=== PATIENT | female | born 1950 | race Caucasian/White ===

== ENCOUNTER 2020-12-09 10:45 | Inpatient (IN) | payer MEDICARE, BC ==
[2020-12-11 09:53] VITALS: BMI 36.6
[2020-12-12] MEDS ORDERED: EPINEPHrine 1 MG/ML AMP ONE (06:12)
[2020-12-12] MEDS ORDERED: Thrombin 5000 UNITS/5 ML VIAL ONE ×2 (06:12→13:10)
[2020-12-12] MEDS ORDERED: Bupivacaine PF 0.5% 30 ML VIAL ONE (06:12)
[2020-12-12] MEDS ORDERED: Fentanyl 100 MCG/2 ML VIAL ONE ×3 (06:47→16:22)
[2020-12-12] MEDS ORDERED: HYDROmorphone 2 MG/ML VIAL ONE (06:48)
[2020-12-12] MEDS ORDERED: Ketamine 50 MG/ML (10ML VIAL) ONE (06:48)
[2020-12-12] MEDS ORDERED: Glycopyrrolate 0.2 MG/ML 5 ML SYRINGE ONE (07:05)
[2020-12-12] MEDS ORDERED: Labetalol HCl 100 MG/20 ML VIAL ONE ×2 (07:05→15:19)
[2020-12-12] MEDS ORDERED: Dexamethasone 20 MG/5 ML VIAL ONE (07:05)
[2020-12-12] MEDS ORDERED: ePHEDrine 50 MG/ML VIAL ONE (07:05)
[2020-12-12] MEDS ORDERED: Ondansetron PF 4 MG/2 ML Vial ONE ×2 (07:05→10:26)
[2020-12-12] MEDS ORDERED: Vecuronium 10 MG VIAL ONE (07:05)
[2020-12-12] MEDS ORDERED: PROPOFOL 200 MG/20 ML VIAL ONE (07:05)
[2020-12-12] MEDS ORDERED: Rocuronium Bromide 10 MG/ML (10ML VIAL) ONE (07:05)
[2020-12-12] MEDS ORDERED: diphenhydrAMINE 50 MG/ML VIAL ONE (07:05)
[2020-12-12] MEDS ORDERED: Albumin 5% 500 ML ONE (10:15)
[2020-12-12] MEDS ORDERED: Midazolam HCl 2 mg/2 ml Vial ONE (10:23)
[2020-12-12] MEDS ORDERED: Mag-Al 1200 mg/1200 mg/30 ML UDCUP PO PRN (15:02)
[2020-12-12] MEDS ORDERED: Promethazine HCl 25 MG/ML VIAL IM PRN ×2 (15:02→15:23)
[2020-12-12] MEDS ORDERED: traMADol HCl 50 MG TAB PO PRN (15:02)
[2020-12-12] MEDS ORDERED: Scopolamine 1.5 mg/72 hour Patch TD PRN (15:02)
[2020-12-12] MEDS ORDERED: Promethazine 25 MG TAB PO PRN (15:02)
[2020-12-12] MEDS ORDERED: diphenhydrAMINE 25 MG CAP PO PRN (15:02)
[2020-12-12] MEDS ORDERED: Acetaminophen/Codeine 30-300mg Tablet PO PRN (15:02)
[2020-12-12] MEDS ORDERED: Ketorolac Tromethamine 30 MG/ML VIAL IVP PRN (15:23)
[2020-12-12] MEDS ORDERED: Ondansetron HCl/PF 4 MG/2 ML Vial IVP PRN (15:23)
[2020-12-12] MEDS ORDERED: Promethazine HCl 25 MG/ML VIAL SLOW IVP PRN (15:23)
[2020-12-12] MEDS: Sodium Chloride 0.9% 1,000 ML IV SCH (17:11)
[2020-12-12] MEDS: Morphine 2 MG/ML VIAL SLOW IVP PRN ×3 (18:41→21:45)
[2020-12-12] MEDS: hydrOXYzine 25 MG TAB PO SCH (20:07)
[2020-12-12] MEDS: Bupropion 150 MG SR TAB PO SCH (20:07)
[2020-12-12] MEDS: tiZANidine HCl 4 MG TAB PO PRN (20:07)
[2020-12-12] MEDS ORDERED: Atorvastatin Calcium 20 MG TAB PO SCH (21:00)
[2020-12-12] MEDS ORDERED: Zolpidem Tartrate 5 MG TAB PO SCH (21:00)
[2020-12-12] MEDS: CEFAZOLIN 2 GM in Premix Bag 1 BAG IVPB SCH (21:48)
[2020-12-12] MEDS ORDERED: HYDROcodone/Acetaminophen 10/325 mg Tablet PO PRN (22:16)
[2020-12-12] MEDS: HYDROcodone/Acetaminophen 10/325 mg Tablet PO PRN (22:20)
[2020-12-13] MEDS: tiZANidine HCl 4 MG TAB PO PRN ×2 (01:31→07:58)
[2020-12-13] MEDS: Morphine 2 MG/ML VIAL SLOW IVP PRN (01:32)
[2020-12-13] MEDS: HYDROcodone/Acetaminophen 10/325 mg Tablet PO PRN ×2 (02:25→08:46)
[2020-12-13] MEDS ORDERED: Fentanyl 100 MCG/2 ML VIAL SLOW IVP SCH ×2 (05:15→08:00)
[2020-12-13] MEDS: Sodium Chloride 0.9% 1,000 ML IV SCH ×2 (05:19→12:11)
[2020-12-13] MEDS: Levothyroxine 150 MCG TAB PO SCH (05:19)
[2020-12-13] MEDS: CEFAZOLIN 2 GM in Premix Bag 1 BAG IVPB SCH (05:19)
[2020-12-13 05:22] LABS: #Lymphocytes 0.7 thou/uL (1.20-3.40); #Monocytes 0.7 thou/uL (0.11-0.59); #Neutrophils 6.3 thou/uL (1.40-6.50); %Basophils 0.1 % (0.0-1.0); %Eosinophils 0.1 % (0.0-10.0); %Lymphocytes 9.1 % (21.0-51.0); %Monocytes 9.2 % (0.0-10.0); %Neutrophils 81.5 % (42.0-75.0); Hemoglobin 8.7 g/dL (12.0-16.0); Mean Corpuscular HGB CONC 32.3 g/dL (32.0-36.0); Mean Corpuscular Hemoglobin 28.7 pg (27.0-31.0); Mean Corpuscular Volume 88.8 fL (78.0-98.0); Mean Platelet Volume 6.3 fL (7.4-10.4); Platelet Count 224 thou/uL (130-400); RBC Distribution Width 12.9 % (11.5-14.5); Red Blood Cell (RBC) Count 3.03 mill/uL (4.20-5.40); White Blood Cell (WBC) Count 7.8 thou/uL (4.8-10.8)
[2020-12-13] MEDS: hydrOXYzine 25 MG TAB PO SCH ×2 (07:59→20:32)
[2020-12-13] MEDS ORDERED: Promethazine HCl 25 MG/ML VIAL IM PRN (09:38)
[2020-12-13] MEDS ORDERED: diphenhydrAMINE 25 MG CAP PO PRN (09:38)
[2020-12-13] MEDS ORDERED: diphenhydrAMINE 50 MG/ML VIAL IVP PRN (09:38)
[2020-12-13] MEDS ORDERED: Ondansetron PF 4 MG/2 ML Vial IVP PRN (09:38)
[2020-12-13] MEDS ORDERED: diphenhydrAMINE 50 MG/ML VIAL IM PRN (09:38)
[2020-12-13] MEDS ORDERED: Naloxone HCl 0.4 mg/ml Vial IV PRN (09:38)
[2020-12-13] MEDS: fentaNYL Citrate/PF 2,000 MCG in Sodium Chloride 0.9% 60 ML IV PRN (10:55)
[2020-12-13] MEDS: Communication Order-Pharmacy FS SCH (11:16)
[2020-12-13] MEDS ORDERED: Sodium Chloride 0.9% 500 ML IV SCH (12:30)
[2020-12-13] MEDS: Ketorolac Tromethamine 30 MG/ML VIAL IVP SCH ×2 (12:43→18:19)
[2020-12-13 14:16] LABS: Hemoglobin 7.8 g/dL (12.0-16.0); Mean Corpuscular HGB CONC 31.8 g/dL (32.0-36.0); Mean Corpuscular Hemoglobin 28.4 pg (27.0-31.0); Mean Corpuscular Volume 89.4 fL (78.0-98.0); Mean Platelet Volume 6.4 fL (7.4-10.4); Platelet Count 195 thou/uL (130-400); RBC Distribution Width 13.1 % (11.5-14.5); Red Blood Cell (RBC) Count 2.73 mill/uL (4.20-5.40); White Blood Cell (WBC) Count 6.7 thou/uL (4.8-10.8)
[2020-12-13] MEDS: Bupropion 150 MG SR TAB PO SCH (20:32)
[2020-12-14] MEDS: Ketorolac Tromethamine 30 MG/ML VIAL IVP SCH ×5 (00:52→23:08)
[2020-12-14] MEDS: Levothyroxine 150 MCG TAB PO SCH (05:39)
[2020-12-14] MEDS: Sodium Chloride 0.9% 1,000 ML IV SCH ×2 (05:40→20:27)
[2020-12-14] MEDS: Acetaminophen 325 MG TAB PO PRN (05:49)
[2020-12-14] MEDS: hydrOXYzine 25 MG TAB PO SCH ×2 (08:09→20:26)
[2020-12-14] MEDS: Communication Order-Pharmacy FS SCH (10:52)
[2020-12-14 10:56] LABS: #Eosinphils 0.1 thou/uL (0.0-0.7); #Lymphocytes 0.6 thou/uL (1.20-3.40); #Monocytes 0.6 thou/uL (0.11-0.59); #Neutrophils 5.8 thou/uL (1.40-6.50); %Basophils 0.1 % (0.0-1.0); %Eosinophils 1.3 % (0.0-10.0); %Lymphocytes 8.2 % (21.0-51.0); %Monocytes 7.9 % (0.0-10.0); %Neutrophils 82.5 % (42.0-75.0); Mean Corpuscular HGB CONC 32.1 g/dL (32.0-36.0); Mean Corpuscular Hemoglobin 28.7 pg (27.0-31.0); Mean Corpuscular Volume 89.4 fL (78.0-98.0); Mean Platelet Volume 6.1 fL (7.4-10.4); Platelet Count 177 thou/uL (130-400); RBC Distribution Width 13.1 % (11.5-14.5); Red Blood Cell (RBC) Count 2.77 mill/uL (4.20-5.40)
[2020-12-14 11:19] LABS: Anion Gap 12 mmol/L (10-20); BUN (Urea Nitrogen) 27 mg/dL (9.8-20.1); Calc. Creatinine Clearance 44 mL/min (70-130); Calcium 7.8 mg/dL (7.8-10.44); Carbon Dioxide 25 mmol/L (23-31); Chloride 105 mmol/L (98-107); Glucose 116 mg/dL (80-115); Potassium 3.8 mmol/L (3.5-5.1); Sodium 138 mmol/L (136-145)
[2020-12-14] MEDS: fentaNYL Citrate/PF 2,000 MCG in Sodium Chloride 0.9% 60 ML IV PRN (16:48)
[2020-12-14] MEDS: Bupropion 150 MG SR TAB PO SCH (20:26)
[2020-12-14] MEDS: Zolpidem Tartrate 5 MG TAB PO PRN (23:09)
[2020-12-15] MEDS: Ketorolac Tromethamine 30 MG/ML VIAL IVP SCH ×2 (05:51→13:06)
[2020-12-15] MEDS: Levothyroxine 150 MCG TAB PO SCH (05:51)
[2020-12-15 05:58] LABS: Hemoglobin 9.1 g/dL (12.0-16.0); Platelet Count 181 thou/uL (130-400)
[2020-12-15] MEDS: hydrOXYzine 25 MG TAB PO SCH ×2 (09:09→20:39)
[2020-12-15] MEDS: Sodium Chloride 0.9% 1,000 ML IV SCH (09:29)
[2020-12-15] MEDS: Communication Order-Pharmacy FS SCH (09:29)
[2020-12-15] MEDS ORDERED: HYDROcodone/Acetaminophen 10/325 mg Tablet PO PRN (10:29)
[2020-12-15] MEDS ORDERED: traMADol HCl 50 MG TAB PO PRN (10:30)
[2020-12-15] MEDS ORDERED: Polyethylene Glycol 3350 17 GM Packet PO PRN (13:24)
[2020-12-15] MEDS ORDERED: Docusate 100 MG CAP PO SCH (13:45)
[2020-12-15] MEDS: Acetaminophen 325 MG TAB PO PRN (18:45)
[2020-12-15] MEDS ORDERED: NIFEdipine XL 30 MG TAB PO SCH (20:30)
[2020-12-15] MEDS: Bupropion 150 MG SR TAB PO SCH (20:39)
[2020-12-15] MEDS: Docusate 100 MG CAP PO SCH (20:39)
[2020-12-15] MEDS: HYDROcodone/Acetaminophen 10/325 mg Tablet PO PRN (22:06)
[2020-12-15] MEDS: Zolpidem Tartrate 5 MG TAB PO PRN (22:12)
[2020-12-16] MEDS: Levothyroxine 150 MCG TAB PO SCH (05:32)
[2020-12-16 05:48] LABS: #Eosinphils 0.2 thou/uL (0.0-0.7); #Lymphocytes 0.8 thou/uL (1.20-3.40); #Monocytes 0.5 thou/uL (0.11-0.59); #Neutrophils 4.2 thou/uL (1.40-6.50); %Basophils 0.4 % (0.0-1.0); %Eosinophils 4.3 % (0.0-10.0); %Monocytes 8.1 % (0.0-10.0); %Neutrophils 73.2 % (42.0-75.0); Hemoglobin 9.1 g/dL (12.0-16.0); Mean Corpuscular HGB CONC 33.1 g/dL (32.0-36.0); Mean Corpuscular Hemoglobin 29.7 pg (27.0-31.0); Mean Corpuscular Volume 89.9 fL (78.0-98.0); Mean Platelet Volume 6.7 fL (7.4-10.4); Platelet Count 197 thou/uL (130-400); Red Blood Cell (RBC) Count 3.05 mill/uL (4.20-5.40); White Blood Cell (WBC) Count 5.8 thou/uL (4.8-10.8)
[2020-12-16 06:06] LABS: Anion Gap 10 mmol/L (10-20); BUN (Urea Nitrogen) 17 mg/dL (9.8-20.1); Calc. Creatinine Clearance 70 mL/min (70-130); Calcium 8.2 mg/dL (7.8-10.44); Carbon Dioxide 27 mmol/L (23-31); Chloride 106 mmol/L (98-107); Glucose 92 mg/dL (80-115); Potassium 3.8 mmol/L (3.5-5.1); Sodium 139 mmol/L (136-145)
[2020-12-16] MEDS: Docusate 100 MG CAP PO SCH (09:49)
[2020-12-16] MEDS: hydrOXYzine 25 MG TAB PO SCH (09:49)
[2020-12-16] MEDS: HYDROcodone/Acetaminophen 10/325 mg Tablet PO PRN (09:55)
[2020-12-16 15:21] VITALS: BP 115/81; TEMP 98.6
== END 2020-12-16 17:52 | DRG 454 ==
LOC: SURG A 12-12 05:47 → EDSTATUS 12-12 10:45 → SURG A 12-12 17:13
PROVIDERS: ADMIT Neurological Surgery; ATTEND Internal Medicine
PROC: 0SG30AJ Fusion of Lumbosacral Joint with Interbody Fusion Device, Posterior Approach, Anterior Column, Open Approach (ICD-10-PCS; principal; 2020-12-12)
PROC: 0SG3071 Fusion of Lumbosacral Joint with Autologous Tissue Substitute, Posterior Approach, Posterior Column, Open Approach (ICD-10-PCS; 2020-12-12)
PROC: 01NB0ZZ Release Lumbar Nerve, Open Approach (ICD-10-PCS; 2020-12-12)
PROC: 0SB40ZZ Excision of Lumbosacral Disc, Open Approach (ICD-10-PCS; 2020-12-12)
PROC: 3E033XZ Introduction of Vasopressor into Peripheral Vein, Percutaneous Approach (ICD-10-PCS; 2020-12-12)
PROC: 30233N1 Transfusion of Nonautologous Red Blood Cells into Peripheral Vein, Percutaneous Approach (ICD-10-PCS; 2020-12-14)
DX: M48.061 Spinal stenosis, lumbar region without neurogenic claudication (principal); D62 Acute posthemorrhagic anemia; M19.90 Unspecified osteoarthritis, unspecified site; Z20.822 Contact with and (suspected) exposure to COVID-19; F32.9 Major depressive disorder, single episode, unspecified; E78.00 Pure hypercholesterolemia, unspecified; G89.29 Other chronic pain; M54.16 Radiculopathy, lumbar region; E78.5 Hyperlipidemia, unspecified; N18.30 Chronic kidney disease, stage 3 unspecified; D63.1 Anemia in chronic kidney disease; I95.81 Postprocedural hypotension; K21.9 Gastro-esophageal reflux disease without esophagitis; E66.9 Obesity, unspecified; Z90.710 Acquired absence of both cervix and uterus; Z87.891 Personal history of nicotine dependence; Z79.899 Other long term (current) drug therapy; Z85.850 Personal history of malignant neoplasm of thyroid; Z85.89 Personal history of malignant neoplasm of other organs and systems; Z68.36 Body mass index [BMI] 36.0-36.9, adult
CPT/HCPCS: 36415; 36430; 76000; 80048; 85014; 85018; 85025; 85027; 85049; 85610; 85730; 86850; 86900; 86901; 87635; C1713; C1768; J0171; J0690; J1100; J1170; J1200; J1885; J2250; J2270; J2405; J2704; J3010; J3370; J3490; P9016; P9045; S0020; U0003; U0005

== ENCOUNTER 2020-12-09 11:35 | Outpatient (CLI) | payer MEDICARE, BC ==
[2020-12-09 15:54] LABS: Hemoglobin 11.4 g/dL (12.0-15.5); Mean Corpuscular HGB CONC 30.5 g/dL (32.0-36.0); Mean Corpuscular Hemoglobin 27.3 pg (27.0-33.0); Mean Corpuscular Volume 89.5 fl (81.6-98.3); Mean Platelet Volume 8.9 fl (7.4-10.4); Platelet Count 228 10x3/uL (150-450); RBC Distribution Width 13.9 % (11.5-14.5); Red Blood Cell (RBC) Count 4.18 10x6/uL (3.90-5.03); White Blood Cell (WBC) Count 5.2 10x3/uL (3.5-10.5)
[2020-12-09 16:13] LABS: PTT 28.5 sec (22.0-33.0); Prothrombin Time 10.6 sec (9.5-12.1)
[2020-12-09 23:42] LABS: SARS-CoV-2 PCR by NAA Not Detected (NotDetected)
== END 2020-12-09 11:36 | disposition home or self-care (01) ==
LOC: LABBT 11:35
PROVIDERS: ATTEND Neurological Surgery
DX: Z01.812 Encounter for preprocedural laboratory examination (principal); M54.16 Radiculopathy, lumbar region; M48.061 Spinal stenosis, lumbar region without neurogenic claudication; Z20.822 Contact with and (suspected) exposure to COVID-19
CPT/HCPCS: 85027; 85610; 85730; U0003; U0005; 87635